=== PATIENT | female | born 1955 | race Caucasian/White ===

== ENCOUNTER 2016-08-04 15:39 | Inpatient (IN) ==
[2016-08-04] MEDS ORDERED: SODIUM BICARBONATE 8.4% ONE (15:43)
[2016-08-04] MEDS ORDERED: D50W SYRINGE ONE (15:43)
[2016-08-04] MEDS ORDERED: NS 1,000 ML IV ONE ×4 (15:56→16:45)
[2016-08-04] MEDS ORDERED: LEVOPHED 8 MG in D5 1/2 NS 250 ML IV SCH (16:00)
[2016-08-04] MEDS: LEVOPHED 8 MG in D5 1/2 NS 250 ML IV SCH ×5 (16:07→17:03)
[2016-08-04] MEDS ORDERED: ROCEPHIN 1 GM/NS 1 GM/50 ML IVPB IV ONE (16:23)
[2016-08-04 16:25] LABS: BASO% 0.3 % (0.0-0.8); EOS# 0.01 X1000 (0.0-0.7); EOS% 0.2 % (0.0-10.0); HEMATOCRIT 28.7 % (37.0-47.0); HEMOGLOBIN 8.5 g/dL (12.0-16.0); IMM GRAN# 0.11 X1000 (0.0-0.04); IMM GRAN% 1.7 % (0.0-0.5); LYMPH# 3.84 X1000 (1.2-3.4); LYMPH% 59.8 % (20.5-51.1); MANUAL DIFF NEEDED? NO; MCHC 29.6 g/dL (33-37); MCV 101.4 FL (81-99); MONO# 0.52 X1000 (0.11-0.59); MONO% 8.1 % (1.7-9.3); NEUT% 29.9 % (42.2-75.2); PLT 78 X1000 (130-400); RBC 2.83 XMIL (4.2-5.4)
[2016-08-04 16:32] LABS: INR 1.69; PROTIME 18.4 Seconds (9.2-11.7)
[2016-08-04 16:40] LABS: ALLEN TEST NO; BLOOD TYPE ARTERIAL; DRAW SITE R FEMORAL; METHB 0.6 % (0.0-1.5); O2(CT) 12.2 mL/dL (15.0-23.0); PO2(98.6) 141 mmHg (60-100); SAMPLE BLOOD; SAO2 97.9 % (95.0-100.0); SRATE 32 BPM; THB 8.9 g/dL (11.5-17.4); TVOL 450 mL
[2016-08-04 16:43] LABS: MODALITY VENTILATOR; pH(98.6) < 6.80 (7.35-7.45)
[2016-08-04 16:44] LABS: LACTATE > 20.00 mmoll (0.44-2.22); PCO2(98.6) 92 mmHg (35-45)
[2016-08-04] MEDS ORDERED: ROCEPHIN 1 GM/NS 1 GM/50 ML IVPB ONE (16:46)
[2016-08-04 16:48] LABS: ACETAMINOPHEN 5.4 ug/mL (10-30); AGAP 38; ALBUMIN 2.5 g/dL (3.5-5.0); ALKALINE PHOSPHATASE 63 U/L (32-104); AMYLASE 8 U/L (20-200); BUN 19 mg/dL (8-22); CALCIUM 9.1 mg/dL (8.8-10.2); CHLORIDE 81 mmol/L (98-107); CK PROFILE 143 U/L (24-173); COSMO 299; GOT 225 U/L (10-30); GPT 119 U/L (10-36); LIPASE 31 U/L (13-60); POTASSIUM 4.2 mmol/L (3.5-5.1); SODIUM 133 mmol/L (136-145); TCO2 14 mmol/L (25-35); TOTAL BILIRUBIN 0.12 mg/dL (0.20-1.00); TOTAL PROTEIN 4.7 g/dL (6.3-8.3)
--- NOTE | 2016-08-04 16:53 | Diag Imaging Result Doc PS360 ---
EXAM: CHEST-PORTABLE INDICATION: FULL ARREST TECHNIQUE: One view COMPARISON: 07/14/2016 FINDINGS: There is a newly placed ET tube. The tip of the tube appears to project over the right mainstem bronchus just below the rogerio. Retraction of 3 to 4 cm recommended for a more optimal position. There has been interval development of diffuse interstitial and airspace infiltrates bilaterally with a central predominance. It is probably somewhat worse on the left. This is most compatible with pulmonary edema. Cardiac silhouette is stable. IMPRESSION: 1.Interval development of bilateral infiltrates suggesting pulmonary edema most likely. 2.Malpositioned ET tube. Retraction of 3 to 4 cm recommended. Electronically signed by Robert Krueger 08/04/2016 4:51 PM
[2016-08-04 16:56] LABS: PTT 106.9 Seconds (22.0-36.0)
[2016-08-04] MEDS ORDERED: ROCEPHIN 2 GM/NS 2 GM/50 ML IVPB IV ONE (17:06)
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
[2016-08-04] MEDS ORDERED: EPINEPHRINE SYRINGE ONE (18:21)
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
[2016-08-04] MEDS: NEO-SYNEPHRINE 50 MG in NS 250 ML IV SCH ×4 (19:15→20:15)
[2016-08-04 19:45] VITALS: BP 62/41
[2016-08-04] MEDS ORDERED: NS 1,000 ML IV SCH (20:16)
--- NOTE | 2016-08-04 21:00 | Diag Imaging Result Doc PS360 ---
EXAM: CHEST/ABD TUBE PLACEMENT INDICATION: ET TUBE PLACEMENT TECHNIQUE: One view COMPARISON: None. FINDINGS: The newly placed NG tube projects well below the diaphragm and is assumed to be in the lumen of the stomach in the expected position. The dense bilateral infiltrates seen on the recent prior chest radiograph are essentially stable. There are nonspecific bowel gas patterns. IMPRESSION: Newly placed NG tube in the expected position as described. Electronically signed by Robert Krueger 08/04/2016 8:57 PM
--- NOTE | 2016-08-04 21:26 | Diag Imaging Result Doc PS360 ---
EXAM: HEAD/C-SPINE/THORAX/PELVIS/ABD HISTORY: AMS TECHNIQUE: COMPARISON: None. FINDINGS: Head: No parenchymal hemorrhage. No epidural or subdural hematoma. No subarachnoid hemorrhage. No mass identified on this noncontrasted exam. No hydrocephalus. No skull fracture. There are air-fluid levels in both maxillary sinuses and both sphenoid sinuses. Mucus is found in the ethmoid sinuses. Cervical spine: There is an endotracheal and nasogastric tube present. Moderate degenerative changes are found throughout the mid and lower cervical spine. Mild scoliosis. No fracture. CHEST: There are dense multifocal patchy infiltrates throughout both lungs. Air bronchograms and dense infiltrates are most pronounced in the lower lobes. Trace pleural fluid. No cardiomegaly. No thoracic aortic aneurysm or dissection. No enlarged mediastinal lymph nodes. Abdomen and pelvis: Trace fluid about the liver. The gallbladder has been removed. Intrahepatic periportal edema. Nonspecific hypodense areas within the liver. Spleen is not enlarged. Normal pancreas and adrenal glands. Normal enhancement of the kidneys. No hydronephrosis. Normal aorta. There is stool throughout the colon. The small bowel loops are filled with fluid and slightly distended. The appendix is been removed. A Rizo catheter has the urinary bladder decompressed. Uterus is been removed. No pelvic mass. IMPRESSION: Head: 1. No hemorrhage. No mass. 2. Sinusitis Cervical spine: 1. Degenerative changes and mild scoliosis 2. No fracture CHEST: 1. Dense bilateral infiltrates. Possible ARDS. 2. Trace pleural fluid Abdomen and pelvis: 1. Trace fluid about the liver with nonspecific hypodense areas within the liver 2. Cholecystectomy with periportal edema 3. Mildly distended bowel loops. Findings may represent an ileus. There is also constipation. 4. Hysterectomy Electronically signed by Houston Davison 08/04/2016 9:23 PM
[2016-08-05] MEDS ORDERED: PRILOSEC PO SCH (07:00)
--- NOTE | 2016-08-05 07:03 | EKG Report ---
Test Performed on : 08/04/2016 4:14:18 PM Test Reason : NO ORDER IN Candi Controls Blood Pressure : / mmHG Vent. Rate : 094 BPM Atrial Rate : 094 BPM P-R Int : 202 ms QRS Dur : 152 ms QT Int : 396 ms P-R-T Axes : 065 104 045 degrees QTc Int : 495 ms Normal sinus rhythm. Right bundle branch block Abnormal ECG When compared with ECG of 04-AUG-2016 15:48, (Unconfirmed) Sinus rhythm. has replaced Atrial flutter. Unconfirmed Result
== END 2016-08-04 20:45 | disposition expired ==
LOC: ED 15:39 → EDIPHOLD 19:21 → ICU 19:58